=== PATIENT | male | born 1985 | race Caucasian/White ===

== ENCOUNTER 2017-11-18 07:23 | Emergency (ER) | payer BC, SELFPAY ==
[2017-11-18 07:30] VITALS: BP 146/99; PULSE 75; RESP 16; TEMP 36.7; O2SAT 96
[2017-11-18 07:49] VITALS: RESP 18
--- NOTE | 2017-11-18 08:11 | DI.REPORT_ITS ---
SYMPTOM/DIAGNOSIS: SEVERE VARICOSE VEINS, FULL LEFT LEG TENDERNESS. LEFT LEG ULTRASOUND: The study was carried out according to the usual protocol. The superficial, femoral, popliteal and proximal trifurcation in the superior portion of the leg are well seen. Good compressibility is noted throughout. Flow is demonstrated and flow augmentation was easily elicited with calf compression. SUMMARY: There is no evidence of DVT.
--- NOTE | 2017-11-18 08:20 | ED.GENADUL ---
Disposition Clinical Impression: Varicose veins of left lower extremity Disposition: HOME Condition: Good Instructions: Varicose Veins (ED) Additional Instructions: Please take Tylenol and Motrin for pain. Please use the compression stockings at all times that you are standing or working. Please keep your legs elevated as much as possible. Please use ice in the evening for any pain. If you notice any worsening of your symptoms, or any new symptoms such as vomiting, diarrhea, fever, chills, shortness of breath, chest pain, numbness, weakness, or fainting , please return immediately to the emergency department for reevaluation. Please follow up with your primary care provider as soon as possible for reassessment and reevaluation. As always, it was a pleasure participating in your medical care today. Prescriptions: Acetaminophen [Tylenol Extra Strength] 1,000 mg PO Q6H 5 Days #60 tab Ibuprofen [Motrin Ib] 600 mg PO Q6H 5 Days #60 tablet Medical Decision Making - Medical Decision Making This is a pleasant 32-year-old male who presents with leg pain for the last 3 weeks. Physical exam demonstrates notable varicosities, which correlates well with his history of his work standing 18 hours per day on his feet. He does not recall any family history of this as he did live with his grandmother all his life. He has notable tenderness on palpation of the varicose veins, but demonstrates no signs of significant unilateral swelling of his lower extremities. He denies any risk factors or red flags for blood clots. We will evaluate for DVT, get compression stockings for the patient's, and treat his pain. 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 Feel the patient's pain is secondary to his varicosities. We will give him compression stockings for home use, recommend Tylenol and Motrin for pain, ice, close follow-up with a new primary care provider. We discussed red flags for which to return the patient understands. I have extensively reviewed the treatment plan and discharge instructions with the patient. I have addressed all patient concerns at this time. The patient was made aware of what symptoms to monitor for that would warrant a return to the emergency department. Discussed the plan with the patient, they demonstrate verbal understanding and agreement with our assessment and plan at this time. History of Present Illness - General Chief complaint: Vascular Stated complaint: LEFT LEG PAIN Time Seen by Provider: 11/18/17 07:38 - History of Present Illness Initial comments: This is a 32-year-old male with no medical problems no prior surgeries, no medications, no IV or illicit drug use who presents today for evaluation of left leg pain. 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 For the last 3 weeks he has noted worsening left leg pain. It starts in his calf and radiates up towards his proximal thigh. He describes it as a shooting aching sensation. He denies any burning numbness tingling or weakness. It is worse at the end of the day after he has been standing on it. It is better in the morning. It is not improved by massage. He denies any cough, chest pain, shortness of breath, numbness, tingling, weakness. He denies any history of blood clots. Denies PE risk factors such as recent long car rides, immobilization, recent surgery, prior history of DVT or PE, family history of PE or DVT, morbid obesity, exogenous estrogen and smoking, hemoptysis, history of cancer. Patient denies any other complaints at this time. - Related Data Acetaminophen [Tylenol Extra Strength] 1,000 mg PO Q6H 5 Days #60 tab 11/18/17 Ibuprofen [Motrin Ib] 600 mg PO Q6H 5 Days #60 tablet 11/18/17 Allergies Allergy/AdvReac Type Severity Reaction Status Date / Time No Known Allergies Allergy Unverified 11/18/17 07:34 Review of Systems Other: 10 point review of systems was performed, pertinent positives and negatives are noted in the history of present illness. General Exam - Other Other exam information: 1.Const: Well-nourished, Well-developed, appearing stated age 2.Eyes: PERRL, no conjunctival injection, and symmetrical lids. 3.ENT: Atraumatic external nose and ears. Moist MM. Neck: Symmetric, trachea midline, No thyromegaly. 4.CVS: +S1/S2, No murmurs or gallops. Peripheral pulses 2+ and equal in all extremities. Brisk capillary refill in all extremities. 5.RESP: Unlabored respiratory effort. Clear to auscultation bilaterally. No wheezes rales or rhonchi 6.GI: Soft, Nontender/Nondistended, No hepatosplenomegaly. No guarding or rebound. 7.MSK: Normocephalic/Atraumatic, Extremities w/o deformity No cyanosis or clubbing, Normal movement of all extremities. Patient does demonstrate notable varicosities on the lateral aspect of the left lower extremity extending from the calf up towards the proximal thigh. These are notably tender to palpation. No evidence of unilateral swelling of the calves. Capillary refill, dorsalis pedis and posterior tibial pulse +2 bilaterally and capillary refill is brisk. Negative Homans sign. 8.Skin: Warm, Dry. No rashes or lesions. 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 Sensation grossly intact, no focal neurologic deficits. 10.Psych: (AAO) x3. Appropriate mood and affect Course Vital Signs - 24 hr 11/18/17 11/18/17 07:30 07:49 Temperature 36.7 C Pulse 75 Respiratory 16 18 Rate Blood Pressure 146/99 Pulse Oximetry 96
[2017-11-18] MEDS: Acetaminophen 500 MG TAB 1000 MG PO (09:03)
[2017-11-18] MEDS: Ibuprofen 800 MG TAB PO (09:03)
--- NOTE | 2017-11-19 09:07 | CMPROGNOTE_ITS ---
Care Management Progress Note 11/19-Dr. Loo requested assistance with a PCP f/u in 2 weeks for left leg pain. Patient also needs to establish PCP. Dr. Green spa consultant. Referral faxed to CM today.
== END 2017-11-18 09:18 | disposition home or self-care (01) ==
PROVIDERS: Emergency Provider Student in an Organized Health Care Education/Training Program
DX: I83.812 Varicose veins of left lower extremity with pain (principal)
CPT/HCPCS: 99284; 93971

== ENCOUNTER 2021-12-11 14:40 | Emergency (ER) | payer OTHER, SELFPAY ==
[2021-12-11 15:00] VITALS: BP 152/94; PULSE 70; RESP 18; TEMP 36.7; O2SAT 100
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
[2021-12-15 09:08] LABS: Hepatitis C Ab w Rflx HCV PCR Negative (Negative)
[2021-12-15 09:49] LABS: Hepatitis B Surface Ag Negative (Negative)
== END 2021-12-11 18:39 | disposition home or self-care (01) ==
PROVIDERS: Emergency Provider Physician Assistant
DX: Z77.21 Contact with and (suspected) exposure to potentially hazardous body fluids (principal)
CPT/HCPCS: 86803; 87340; 99281